=== PATIENT | male | born 1955 | race Two or more races ===

== ENCOUNTER 2019-11-28 11:47 | Inpatient (IN) | payer MEDICARE, OTHER ==
[~2019-11-28] VITALS: Ht 167.6 cm; Wt 78.3 kg
[2019-11-28 12:26] LABS: Basophils # (auto) 0 10 ^3/uL (0-0.2); Basophils % (auto) 0.1 % (0.0-2.0); Eosinophils # (auto) 0 10 ^3/uL (0-0.8); Hematocrit 39.5 % (41.0-53.0); Hemoglobin 13.5 g/dL (13.5-17.5); Lymphocytes # (auto) 0.7 10 ^3/uL (0.4-5.4); Lymphocytes % (auto) 6.5 % (10.0-50.0); Mean Corpuscular Hgb Conc. 34.1 g/dL (32.0-36.0); Mean Corpuscular Volume 93.7 fL (80.0-100.0); Monocytes # (auto) 0.1 10 ^3/uL (0-1.3); Monocytes % (auto) 0.8 % (0.0-12.0); Neutrophils # (auto) 10.1 10 ^3/uL (1.6-8.6); Neutrophils % (auto) 92.6 % (37.0-80.0); Platelet Count (auto) 250 10^3/uL (140-450); Red Blood Cells 4.22 10^6/uL (4.5-5.90); Red Cell Distribution Width 13.1 % (11.8-14.3); White Blood Cell 10.9 10^3/uL (4.4-10.8)
[2019-11-28 12:40] LABS: Albumin 3.4 g/dL (3.4-5.0); Calcium 8.3 mg/dL (8.5-10.1); Potassium 4.2 mmol/L (3.5-5.1)
[2019-11-28 12:46] LABS: BUN/Creatinine Ratio 14.8; Bilirubin, Total 0.3 mg/dL (0.2-1.0); Total Protein 6.6 g/dL (6.4-8.2)
[2019-11-28 15:51] LABS: INR 0.98 (0.9-1.15); Partial Thromboplastin Time 26.8 sec (23.0-31.2)
[2019-11-28] MEDS ORDERED: HYDROcodone-ACET 5/325MG TAB PO PRN (18:30)
[2019-11-28] MEDS ORDERED: ALUM & MAG HYDROX-SIMETH LIQ(MAALOX) 30 ML PO PRN (18:30)
[2019-11-28] MEDS ORDERED: PIPERACILLIN-TAZOB 3.375GM 100 ML IV ONE (18:30)
[2019-11-28] MEDS ORDERED: ACETAMINOPHEN 325 MG TAB PO PRN (18:30)
[2019-11-28] MEDS ORDERED: DOCUSATE SOD 100 MG CAP PO PRN (18:30)
[2019-11-28] MEDS ORDERED: NITROGLYCERIN 0.4 MG SL TAB SL PRN (18:30)
[2019-11-28] MEDS ORDERED: ONDANSETRON HCL 4 MG/2 ML VIAL IV PRN (18:30)
[2019-11-28] MEDS ORDERED: SUCRALFATE 1 GM TAB PO ONE (18:30)
[2019-11-28] MEDS ORDERED: MORPHINE SULF INJ 2 MG/ML SYRINGE 1ML IV PRN ×2 (18:30)
[2019-11-28] MEDS ORDERED: LORazepam 0.5 MG TAB PO PRN (18:30)
[2019-11-28] MEDS ORDERED: DEXTROSE (50%) 50ML SYRG IV PRN (18:45)
[2019-11-28] MEDS ORDERED: IPRATROPIUM BROM 0.5 MG/2.5ML INH SOL NEB PRN (18:45)
[2019-11-28] MEDS ORDERED: PANTOPRAZOLE 40 MG/10 ML VIAL INJ IV ONE (18:45)
[2019-11-28] MEDS ORDERED: hydrALAZINE HCL 20 MG/ML VL IV PRN (18:45)
[2019-11-28] MEDS ORDERED: LACTATED RINGER'S 1,000 ML IV ONE (18:45)
[2019-11-28] MEDS ORDERED: CALCIUM W/VIT D (600MG/400IU) TAB PO ONE (18:45)
[2019-11-28 19:24] VITALS: BP 131/71
[2019-11-28] MEDS ORDERED: METF-370 PO (20:39)
[2019-11-28] MEDS: ACCU-CHEK COMFORT CURVE STRIP VI SCH (21:51)
[2019-11-28] MEDS: InsuLIN REG 1unit/0.01ml Soln (100units/ml) SC SCH (21:56)
[2019-11-28 22:00] VITALS: BP 133/82
[2019-11-28] MEDS ORDERED: ATORVASTATIN 20 MG TAB PO SCH (22:00)
[2019-11-28 22:02] LABS: Urine WBC None Seen /hpf (0 - 3)
[2019-11-28] MEDS: SODIUM CHLORIDE 0.9% 1,000 ML IV SCH (22:30)
[2019-11-28 22:32] LABS: Urine Bacteria NONE SEEN /hpf (None Seen); Urine Blood Negative /uL (Negative); Urine Specific Gravity 1.006 (1.001-1.035)
--- NOTE | 2019-11-29 00:04 | NUR ---
Respiratory note: AT BEDSIDE TO ASSESS PT FOR PRN TX, TX NOT INDICATED AT THIS TIME. PT ON RA POX 99-98%. BS ARE CLEAR DIMINISHED T/O. NO S/S OF DISTRESS NOTED. PT AWARE I CAN BE PAGED AT ANY TIME HE FEELS SOB OR HAVING ANY CONCERN WITH HIS BREATHING. RT NAME AND PAGER ASSIGNMENT WRITTEN ON PTS ROOM BOARD. WILL CONTINUE TO MONITOR NEEDED.
[2019-11-29] MEDS ORDERED: hydrALAZINE HCL 20 MG/ML VL IV PRN (01:00)
[2019-11-29] MEDS ORDERED: levoFLOXacin 500MG 100 ML IV SCH (02:00)
[2019-11-29 05:00] VITALS: BP 107/64
[2019-11-29] MEDS ORDERED: PIPERACILLIN-TAZOB 2.25GM 50 ML IV SCH ×2 (05:00)
[2019-11-29] MEDS: ACCU-CHEK COMFORT CURVE STRIP VI SCH ×2 (05:53→13:24)
[2019-11-29 05:55] LABS: Cholesterol 156 mg/dL (< 200); HDL Cholesterol 48 mg/dL (40-59); LDL Cholesterol 98 mg/dL (< 100); Triglycerides 97 mg/dL (< 150)
[2019-11-29] MEDS: InsuLIN REG 1unit/0.01ml Soln (100units/ml) SC SCH ×2 (05:59→13:25)
[2019-11-29] MEDS ORDERED: FUROSEMIDE 20 MG/2 ML VIAL IV SCH (06:00)
[2019-11-29] MEDS ORDERED: ASPI-543 PO (06:49)
[2019-11-29] MEDS ORDERED: SUCRALFATE 1 GM TAB PO SCH (07:00)
--- NOTE | 2019-11-29 07:30 | NUR ---
Opening Shift Note Assumed patient care from NOC RN. Patient currently sitting up in bed, no signs of distress at this time. Respirations even and unlabored. Safety precautions in place, call light within reach, will continue to monitor.
[2019-11-29] MEDS ORDERED: CALCIUM W/VIT D (600MG/400IU) TAB PO SCH (08:00)
[2019-11-29] MEDS: SODIUM CHLORIDE 0.9% 1,000 ML IV SCH (08:27)
[2019-11-29 08:53] VITALS: BP 108/71
--- NOTE | 2019-11-29 09:23 | NUR ---
Received Call from MD Received call from Dr. Le, anesthesiologist. Per MD patient was not vomiting blood post surgery but had laryngospasm, blood tinged sputum, and low O2 saturation. Per MD, patient was sent to ED to rule out negative pressure pulmonary edema. Requesting to speak with patient's attending MD and provided cell phone number [phone].
--- NOTE | 2019-11-29 09:50 | NUR ---
Called MD Notified MD of patient status s/p procedure per anesthesiologist report. MD provided with phone number.
[2019-11-29] MEDS ORDERED: PANTOPRAZOLE 40 MG/10 ML VIAL INJ IV SCH (10:00)
--- NOTE | 2019-11-29 11:10 | NUR ---
at Bedside at bedside discussing plan of care with patient. Addendum: 11/29/19 at 1816 by ALEXY VELIZ RN RN Dr. Puente aware of Dr. Le's report and phone number in chart.
[2019-11-29] MEDS ORDERED: IOHEXOL 350 MG/ML 100ML IJ ONE (12:45)
[2019-11-29 13:00] VITALS: BP 111/62
[2019-11-29] MEDS ORDERED: POTA1TAB61 PO (14:07)
[2019-11-29] MEDS ORDERED: FURO20TA3 PO (14:07)
[2019-11-29 16:57] VITALS: BP 111/62
[2019-11-29 17:00] VITALS: BP 121/66
--- NOTE | 2019-11-29 17:55 | NUR ---
Discharge Discharge instructions given as ordered. Encourage to follow up with PMD as instructed. All questions and concerns addressed. Patient verbalized understanding. Medication reconciliation form completed and copy given to patient. Home medications held in Pharmacy returned to patient. IV removed with catheter intact, pressure dressing applied. Telemetry unit returned to ICU. Patient taken to vehicle via wheelchair with all personal belongings, accompanied by staff and family member. No distress noted at time of departure.
== END 2019-11-29 17:55 | disposition home or self-care (01) | DRG 154 ==
LOC: ER 11:47 → EDBD 11:47 → TELE 11:48 → TELE-WESTW 20:06
PROVIDERS: ADMIT Hospitalist; ATTEND Internal Medicine
DX: J38.5 Laryngeal spasm (principal); J81.0 Acute pulmonary edema; R04.2 Hemoptysis; Z96.652 Presence of left artificial knee joint; J20.9 Acute bronchitis, unspecified; E66.9 Obesity, unspecified; Z20.828 Contact with and (suspected) exposure to other viral communicable diseases; E11.9 Type 2 diabetes mellitus without complications; E78.5 Hyperlipidemia, unspecified; I10 Essential (primary) hypertension; Z82.49 Family history of ischemic heart disease and other diseases of the circulatory system; Z83.3 Family history of diabetes mellitus; Z79.84 Long term (current) use of oral hypoglycemic drugs; S83.207A Unspecified tear of unspecified meniscus, current injury, left knee, initial encounter; J42 Unspecified chronic bronchitis; Z68.27 Body mass index [BMI] 27.0-27.9, adult
CPT/HCPCS: 36415; 71045; 71275; 80053; 80061; 81001; 82962; 83036; 83880; 84484; 85025; 85610; 85730; 87040; 87086; 93005; 96361; 96374; C9113; G0378; J1815; J1956; J2543